=== PATIENT | female | born 1970 ===

== ENCOUNTER 2024-11-24 05:00 | Day surgery (SDC) | payer OTHER ==
[~2024-11-24 05:00] MED LIST: SYNTHROID150 MCG PO; SYNTHROID175 MCG; TOPROL XL50 M1 PO
[2024-11-24] MEDS ORDERED: CEFAZOLIN SODIUM 1,000 MG VIAL ONE ×2 (08:00→08:47)
[2024-11-24] MEDS ORDERED: GENTAMICIN SULFATE 40 MG/ML VIAL ONE (08:47)
[2024-11-24] MEDS ORDERED: CHLORHEXIDINE GLUCONATE 120 ML BOTTLE TOP ONE (08:47)
[2024-11-24] MEDS ORDERED: MORPHINE SULFATE 4 MG/ML VIAL IV ONE ×2 (11:05→14:45)
[2024-11-24] MEDS ORDERED: CIPRO500 MG PO (11:45)
[2024-11-24] MEDS ORDERED: TRAM1TAB98 PO (11:46)
== END 2024-11-24 16:35 | disposition home or self-care (01) ==
LOC: CIR.AMB 05:00
PROVIDERS: ATTEND Obstetrics & Gynecology Gynecology
DX: N39.3 Stress incontinence (female) (male) (principal)
CPT/HCPCS: 57288; C1771